=== PATIENT | female | born 2000 | race Caucasian/White ===

== ENCOUNTER → 2024-07-09 07:23 | Outpatient (REF) | payer OTHER, SELFPAY | LOC: PAVMRI 07:23 | PROVIDERS: ATTENDING PHYSICIAN Internal Medicine; FAMILY PHYSICIAN Internal Medicine | DX: M46.1 Sacroiliitis, not elsewhere classified (principal) | CPT/HCPCS: 72195 ==

== ENCOUNTER → 2024-07-19 16:53 | Outpatient (REF) | payer OTHER, SELFPAY | LOC: RAD 16:53 | PROVIDERS: ATTENDING PHYSICIAN Obstetrics & Gynecology; FAMILY PHYSICIAN Internal Medicine | DX: N93.8 Other specified abnormal uterine and vaginal bleeding (principal) | CPT/HCPCS: 76830; 76856 ==

== ENCOUNTER → 2024-07-30 19:00 | Outpatient (REF) | payer OTHER, SELFPAY | LOC: MRI 3T 19:00 | PROVIDERS: ATTENDING PHYSICIAN Psychiatry & Neurology Neurology; FAMILY PHYSICIAN Internal Medicine | DX: Q85.9 Phakomatosis, unspecified (principal) | CPT/HCPCS: 70553; A9575 ==

== ENCOUNTER → 2024-12-04 11:15 | Outpatient (REF) | payer OTHER, SELFPAY | LOC: RAD 11:15 | PROVIDERS: ATTENDING PHYSICIAN Psychiatry & Neurology Neurology; FAMILY PHYSICIAN Internal Medicine | DX: M54.2 Cervicalgia (principal); R07.89 Other chest pain | CPT/HCPCS: 71046; 72050 ==